=== PATIENT | female | born 1985 | race African-American/Black ===

== ENCOUNTER 2017-03-29 16:46 | Emergency (ER) | payer OTHER ==
--- NOTE | 2017-03-29 18:10 | ER Document Report ---
ED Medical Screen (RME) - General Mode of Arrival: Ambulatory TRAVEL OUTSIDE OF THE [place] IN LAST 30 DAYS: No <DEMETRIA HERNANDEZ - Last Filed: 03/29/17 18:13> <JUAN VERDIN - Last Filed: 03/29/17 18:27> - General Chief Complaint: Abdominal Pain Stated Complaint: ABDOMINAL PAIN Time Seen by Provider: 03/29/17 17:34 Notes: Patient is a 31 year old female presenting to the emergency department for abdominal pain. Patient states she belched and had a burning sensation. Patient states she also had some vomiting today and a numbing pain in her abdomen. Patient states she had diarrhea on Friday and is also having some cold sweats. Patient states she had an incisional hernia repair April 2016 and she feels like her abdomen is the same way as it was prior to her repair; patient states is from incision related to her . Patient denies being due to an IUD placement. Patient has no known drug allergies. (EDMETRIA HERNANDEZ) - Related Data Allergies/Adverse Reactions: No Known Allergies Allergy (Verified 03/29/17 16:50) Past Medical History - Social History Chew tobacco use (# tins/day): No Frequency of alcohol use: Occasional Drug Abuse: None - Past Medical History Cardiac Medical History: Reports: Hx Hypertension Denies: Hx Heart Murmur Renal/ Medical History: Denies: Hx Peritoneal Dialysis GI Medical History: Reports: Hx Gastroesophageal Reflux Disease - during . Denies: Hx Hiatal Hernia, Hx Ulcer Past Surgical History: Reports: Hx Abdominal Surgery - incisional hernia repair 2015, gastric bypass 2006, Hx Section - Immunizations Hx Diphtheria, Pertussis, Tetanus Vaccination: Yes - 2012 History of Influenza Vaccine for 03/2017 - 08/2017 Season: No <DEMETRIA HERNANDEZ - Last Filed: 03/29/17 18:13> Physical Exam <DEMETRIA HERNANDEZ - Last Filed: 03/29/17 18:13> <JUAN VERDIN - Last Filed: 03/29/17 18:27> - Vital signs Vitals: Temp Pulse Resp BP Pulse Ox 98.7 F 96 20 142/92 H 99 03/29/17 16:51 03/29/17 16:51 03/29/17 16:51 03/29/17 16:51 03/29/17 16:51 - Notes Notes: GENERAL: Alert, interacts well. No acute distress. LUNGS: Clear to auscultation bilaterally, no wheezes, rales, or rhonchi. No respiratory distress. HEART: Regular rate and rhythm. No murmurs, gallops, or rubs. ABDOMEN: Soft, epigastric and lower abdominal tenderness to palpation. Non- distended. Bowel sounds present in all 4 quadrants. (DEMETRIA HERNANDEZ) Course - Laboratory Result Diagrams: 03/29/17 17:45 03/29/17 17:45 <JUAN VERDIN - Last Filed: 03/29/17 18:27> - Vital Signs Vital signs: Temp Pulse Resp BP Pulse Ox 98.7 F 96 20 142/92 H 99 03/29/17 16:51 03/29/17 16:51 03/29/17 16:51 03/29/17 16:51 03/29/17 16:51 - Laboratory Laboratory results interpreted by me: 03/29/17 03/29/17 17:45 17:45 Hgb 9.7 L Hct 30.8 L MCV 67 L MCH 21.2 L MCHC 31.5 L RDW 17.6 H Urine Urobilinogen 2.0 H Ur Leukocyte Esterase TRACE H Scribe Documentation - Scribe Written by Scribe:: Astrid Brambila, 03/29/2017 181 acting as scribe for :: Eva <DEMETRIA HERNANDEZ - Last Filed: 03/29/17 18:13>
[2017-03-29 18:22] LABS: ABSOLUTE LYMPHOCYTES (AUTO) 1.2 10^3/uL (0.5-4.7); ABSOLUTE MONOCYTES (AUTO) 0.4 10^3/uL (0.1-1.4); ABSOLUTE NEUT (AUTO) 4.4 10^3/uL (1.7-8.2); BASOPHILS % (AUTO) 0.4 % (0-2); EOSINOPHILS % (AUTO) 0.4 % (0-6); HEMATOCRIT 30.8 % (36.0-47.0); HEMOGLOBIN 9.7 g/dL (12.0-15.5); HGB HCT DIFFERENCE -1.7; LYMPHOCYTES % (AUTO) 19.6 % (13-45); MEAN CORPUSCULAR HEMOGLOBIN 21.2 pg (27.0-33.4); MEAN CORPUSCULAR HGB CONC 31.5 g/dL (32.0-36.0); MEAN CORPUSCULAR VOLUME 67 fl (80-97); MONOCYTES % (AUTO) 6.6 % (3-13); RED BLOOD COUNT 4.58 10^6/uL (3.72-5.28); RED CELL DISTRIBUTION WIDTH 17.6 % (11.5-14.0); WHITE BLOOD COUNT 6.1 10^3/uL (4.0-10.5)
[2017-03-29 18:23] LABS: APPEARANCE,URINE SLIGHTLY-CLOUDY; BILIRUBIN,URINE NEGATIVE (NEGATIVE); CALCIUM OXALATE CRYSTALS,URINE TOO NUMEROUS TO CNT /HPF; GLUCOSE, URINE NEGATIVE (NEGATIVE); KETONES,URINE NEGATIVE (NEGATIVE); LEUKOCYTE ESTERASE,URINE TRACE (NEGATIVE); NITRITE,URINE NEGATIVE (NEGATIVE); PROTEIN,URINE NEGATIVE (NEGATIVE)
[2017-03-29 18:43] LABS: ALANINE AMINOTRANSFERASE 38 U/L (9-52); ALBUMIN 4.1 g/dL (3.5-5.0); ALKALINE PHOSPHATASE 102 U/L (38-126); ANION GAP 11 (5-19); ASPARTATE AMINO TRANSFERASE 35 U/L (14-36); BILIRUBIN,DIRECT 0.4 mg/dL (0.0-0.4); BILIRUBIN,TOTAL 0.4 mg/dL (0.2-1.3); BLOOD UREA NITROGEN 10 mg/dL (7-20); CARBON DIOXIDE 23 mmol/L (22-30); CHLORIDE 109 mmol/L (98-107); CREATININE RESULT 0.67 mg/dL (0.52-1.25); GLUCOSE 94 mg/dL (75-110); LIPASE 111.2 U/L (23-300); POTASSIUM 4.6 mmol/L (3.6-5.0); SODIUM 143.2 mmol/L (137-145); TOTAL PROTEIN 7.6 g/dL (6.3-8.2)
[2017-03-29] MEDS ORDERED: FAMOTIDINE 20 MG TABLET PO ONE (19:19)
[2017-03-29] MEDS ORDERED: NORMAL SALINE 1000 ML 1,000 ML IV ONE (19:19)
[2017-03-29] MEDS ORDERED: OXYCODONE-ACETAMINOPHEN 5-325 MG TABLET PO ONE (19:19)
[2017-03-29] MEDS ORDERED: PROMETHAZINE HCL 25 MG TABLET PO ONE (19:19)
--- NOTE | 2017-03-29 19:32 | ER Document Report ---
ED GI/ - General Chief Complaint: Abdominal Pain Stated Complaint: ABDOMINAL PAIN Time Seen by Provider: 03/29/17 17:34 Mode of Arrival: Ambulatory Notes: Patient is a 31-year-old female that comes emergency department for chief complaint of abdominal pain. She states that she belched, had a burning sensation and then had sharp pains in her abdomen, she states after she came to the emergency department she vomited. She states that she has pain in her mid abdomen. She has a history of gastric bypass, she takes no daily medications, such as a history of an incisional hernia after a which was repaired with mesh, she states that her pain is in a similar location and she is afraid it returned. She has an IUD in place. TRAVEL OUTSIDE OF THE [place] IN LAST 30 DAYS: No - Related Data Allergies/Adverse Reactions: No Known Allergies Allergy (Verified 03/29/17 16:50) Past Medical History - General Information source: Patient - Social History Smoking Status: Never Smoker Chew tobacco use (# tins/day): No Frequency of alcohol use: Occasional Drug Abuse: None Lives with: Family Family History: Reviewed & Not Pertinent - Past Medical History Cardiac Medical History: Reports: Hx Hypertension Denies: Hx Heart Murmur Renal/ Medical History: Denies: Hx Peritoneal Dialysis GI Medical History: Reports: Hx Gastroesophageal Reflux Disease - during . Denies: Hx Hiatal Hernia, Hx Ulcer Past Surgical History: Reports: Hx Abdominal Surgery - incisional hernia repair 2015, gastric bypass 2006, Hx Section - Immunizations Hx Diphtheria, Pertussis, Tetanus Vaccination: Yes - 2012 Review of Systems - Review of Systems Constitutional: No symptoms reported EENT: No symptoms reported Cardiovascular: No symptoms reported Respiratory: No symptoms reported Gastrointestinal: See HPI Genitourinary: No symptoms reported Female Genitourinary: No symptoms reported Musculoskeletal: No symptoms reported Skin: No symptoms reported Hematologic/Lymphatic: No symptoms reported Neurological/Psychological: No symptoms reported Physical Exam - Vital signs Vitals: Temp Pulse Resp BP Pulse Ox 98.7 F 96 20 142/92 H 99 03/29/17 16:51 03/29/17 16:51 03/29/17 16:51 03/29/17 16:51 03/29/17 16:51 Interpretation: Normal - General General appearance: Appears well, Alert In distress: None - HEENT Head: Normocephalic, Atraumatic Eyes: Normal Pupils: PERRL - Respiratory Respiratory status: No respiratory distress Chest status: Nontender Breath sounds: Normal Chest palpation: Normal - Cardiovascular Rhythm: Regular Heart sounds: Normal auscultation Murmur: No - Abdominal Inspection: Normal Distension: No distension Bowel sounds: Normal Tenderness: Tender - Generalized mid abdominal tenderness, no guarding, rigidity , rebound tenderness. Questionable hernia on examination although not obviously. No rigidity or erythema to the abdomen. Organomegaly: No organomegaly - Back Back: Normal, Nontender - Extremities General upper extremity: Normal inspection, Nontender, Normal color, Normal ROM , Normal temperature General lower extremity: Normal inspection, Nontender, Normal color, Normal ROM , Normal temperature, Normal weight bearing. No: Raissa's sign - Neurological Neuro grossly intact: Yes Cognition: Normal Orientation: AAOx4 Man Coma Scale Eye Opening: Spontaneous Man Coma Scale Verbal: Oriented Wendy Coma Scale Motor: Obeys Commands Man Coma Scale Total: 15 Speech: Normal Motor strength normal: LUE, RUE, LLE, RLE Sensory: Normal - Psychological Associated symptoms: Normal affect, Normal mood - Skin Skin Temperature: Warm Skin Moisture: Dry Skin Color: Normal Course - Re-evaluation Re-evalutation: No leukocytosis, no tachycardia, patient does not appear to be in any distress, there is questionable hernia over the mid abdomen on my examination although there is no guarding, rigidity, or rebound tenderness. There is mild generalized tenderness. Patient was medicated, afterwards she did not have any symptoms. Urinalysis unremarkable, chemistry unremarkable. Concern because of patient's history of hernia and questionable examination, after discussion with patient decision was made to perform imaging. Patient has a large nonobstructed hernia with bowel in the hernia in the infra umbilical area per CAT scan. On reevaluation patient remains well-appearing. I discussed with patient, she states that she has a surgeon in [place] that she wants to see in regards to this, she requests a copy of her report and CD and states she will call him tomorrow. I did provide her with medications, I discussed incarceration symptoms and return precautions in detail, no evidence of incarceration on her current examination, patient states understanding and agreement with plan. - Vital Signs Vital signs: Temp Pulse Resp BP Pulse Ox 98.8 F 62 18 153/104 H 100 03/29/17 23:10 03/29/17 23:10 03/29/17 23:10 03/29/17 23:10 03/29/17 23:10 - Laboratory Result Diagrams: 03/29/17 17:45 03/29/17 17:45 Laboratory results interpreted by me: 03/29/17 03/29/17 03/29/17 17:45 17:45 17:45 Hgb 9.7 L Hct 30.8 L MCV 67 L MCH 21.2 L MCHC 31.5 L RDW 17.6 H Chloride 109 H Urine Urobilinogen 2.0 H Ur Leukocyte Esterase TRACE H Discharge - Discharge Clinical Impression: Hernia Abdominal pain Qualifiers: Abdominal location: generalized Qualified Code(s): R10.84 - Generalized abdominal pain Condition: Stable Disposition: HOME, SELF-CARE Additional Instructions: There appears to be a recurrence of the hernia that was previously repaired. This was most likely the cause of your symptoms earlier. Please follow-up on Friday with your surgeon for a close follow-up for additional management of this. If needed take the pain medicine, take the stool softener if you take the pain medicine, however if you develop severe pain, begin to vomit, develop a fever, or have any other concerning symptoms please return immediately to the emergency department. Prescriptions: Docusate Sodium [Colace 100 mg Capsule] 100 mg PO DAILY #30 capsule Hydrocodone/Acetaminophen [[place] 5-325 mg Tablet] 1 - 2 tab PO ASDIR #12 tablet
--- NOTE | 2017-03-29 22:19 | RADIOLOGY REPORT (SQ) ---
EXAM DESCRIPTION: CT ABD/PELVIS WITH IV ORAL COMPLETED DATE/TIME: 03/29/2017 10:03 pm REASON FOR STUDY: mid abd pain, ? hernia COMPARISON: 01/18/2015 TECHNIQUE: CT scan of the abdomen and pelvis performed using helical scanning technique with dynamic intravenous contrast injection. No oral contrast. Images reviewed with lung, soft tissue, and bone windows. Reconstructed coronal and sagittal MPR images reviewed. Delayed images for evaluation of the urinary system also acquired. All images stored on PACS. All CT scanners at this facility use dose modulation, iterative reconstruction, and/or weight based d osing when appropriate to reduce radiation dose to as low as reasonably achievable (ALARA). [facility]: Dose Right [facility]: CareDose [facility]: Dose Right [facility]: Teradose 4D [facility]: [facility] CONTRAST TYPE AND DOSE: contrast/concentration: Isovue 370.00 mg/ml; Total Contrast Delivered: 100.0 ml; Total Saline Delivered: 70.1 ml RENAL FUNCTION: None required. The patient is less than 50 years old. RADIATION DOSE: Up-to-date CT equipment and radiation dose reduction techniques were employed. CTDIv ol: 21.1 - 21.1 mGy. DLP: 2169 mGy-cm.. LIMITATIONS: None. FINDINGS: LOWER CHEST: No significant findings. No nodules or infiltrates. LIVER: Normal size. No masses. No dilated ducts. SPLEEN: Normal size. No focal lesions. PANCREAS: No masses. No significant calcifications. No adjacent inflammation or peripancreatic fluid collections. Pancreatic duct not dilated. GALLBLADDER: No identified stones by CT criteria. No inflammatory changes to suggest cholecystitis. ADRENAL GLANDS: No significant masses or asymmetry. RIGHT KIDNEY AND URETER: No solid masses. No significant calcifications. No hydronephrosis or hyd roureter. LEFT KIDNEY AND URETER: No solid masses. No significant calcifications. No hydronephrosis or hydr oureter. AORTA AND VESSELS: No aneurysm. No dissection. Renal arteries, SMA, celiac without stenosis. RETROPERITONEUM: No retroperitoneal adenopathy, hemorrhage or masses. BOWEL AND PERITONEAL CAVITY: Status post gastric bypass surgery. APPENDIX: Normal. PELVIS: No mass. No free fluid. Normal bladder. Note is again made of an apparent intrauterine mayela ce without evidence of gross complication. ABDOMINAL WALL: Re- demonstration of an infraumbilical abdominal wall hernia containing several loops of small bowel without evidence of obstruction or incarceration. However, small amount of fluid is seen within the hernia sac. The neck measures on the order of 4.1 x 4.7 cm. BONES: No significant or acute findings. OTHER: No other significant finding. IMPRESSION: Re- demonstration of an infraumbilical abdominal hernia containing loops of small bowel without evidence of incarceration or obstruction. A small amount of fluid seen adjacent to the small bowel within the hernia sac is a nonspecific finding. Other chronic and incidental findings as deta iled above. TECHNICAL DOCUMENTATION: JOB ID: [id number] Quality ID # [id number]: Final reports with documentation of one or more dose reduction techniques (e.g., Au tomated exposure control, adjustment of the mA and/or kV according to patient size, use of iterative reconstruction technique) 2010 [employer]- All Rights Reserved
[2017-03-29 23:12] VITALS: BP 153/104
== END 2017-03-29 23:11 | disposition home or self-care (01) ==
LOC: ER 16:46
DX: K46.9 Unspecified abdominal hernia without obstruction or gangrene (principal); R10.84 Generalized abdominal pain; R14.2 Eructation; Z98.84 Bariatric surgery status
CPT/HCPCS: 99284; 96360; 36415; 83690; 85025; 81025; 80053; 81001; 74177; J7030

== ENCOUNTER 2018-03-26 10:35 | Emergency (ER) | payer OTHER ==
[2018-03-26] MEDS ORDERED: KETOROLAC TROMETHAMINE INJ/PF 30 MG/1 ML SDV IV ONE (11:00)
[2018-03-26] MEDS ORDERED: DICYCLOMINE HCL INJ 20 MG/2 ML AMPULE IM ONE (11:01)
--- NOTE | 2018-03-26 11:02 | ER Document Report ---
ED Medical Screen (RME) - General Chief Complaint: Lower Abdominal Pain Stated Complaint: ABDOMINAL PAIN Time Seen by Provider: 03/26/18 10:52 Notes: 32 years old female had 2 ventral hernia surgical repair, today she felt a pop in the lower right abdomen and started having severe pain which made her bend down and sit down. For a while. Subsequently she was able to reduce the hernia and came to the ED. Currently has no nausea vomiting diarrhea but been constipated. Current pain level is mild to moderate. Reducible right lower ventral hernia noted. TRAVEL OUTSIDE OF THE [place] IN LAST 30 DAYS: No - Related Data Allergies/Adverse Reactions: No Known Allergies Allergy (Verified 03/26/18 10:38) Past Medical History - Past Medical History Cardiac Medical History: Reports: Hx Hypertension Denies: Hx Heart Murmur Renal/ Medical History: Denies: Hx Peritoneal Dialysis GI Medical History: Reports: Hx Gastroesophageal Reflux Disease - during . Denies: Hx Hiatal Hernia, Hx Ulcer Past Surgical History: Reports: Hx Abdominal Surgery - incisional hernia repair 2015, gastric bypass 2006, Hx Section - Immunizations Hx Diphtheria, Pertussis, Tetanus Vaccination: Yes - 2012 History of Influenza Vaccine for 03/2017 - 08/2017 Season: No Physical Exam - Vital signs Vitals: Temp Pulse Resp BP Pulse Ox 98.7 F 94 18 147/96 H 99 03/26/18 10:42 03/26/18 10:42 03/26/18 10:42 03/26/18 10:42 03/26/18 10:42 Course - Vital Signs Vital signs: Temp Pulse Resp BP Pulse Ox 98.7 F 94 18 147/96 H 99 03/26/18 10:42 03/26/18 10:42 03/26/18 10:42 03/26/18 10:42 03/26/18 10:42
--- NOTE | 2018-03-26 12:00 | RADIOLOGY REPORT (SQ) ---
EXAM DESCRIPTION: ACUTE ABDOMEN SERIES COMPLETED DATE/TIME: 03/26/2018 11:30 am REASON FOR STUDY: Acute abdominal pain COMPARISON: None. NUMBER OF VIEWS: Three views. TECHNIQUE: Frontal chest, supine abdomen and upright/decubitus abdomen radiographic images acquired. LIMITATIONS: None. FINDINGS: CHEST: Lungs clear of infiltrates. FREE AIR: None. No abnormal gas collections. BOWEL GAS PATTERN: Nonobstructive pattern. No dilated loops or air fluid levels. CALCIFICATIONS: No suspicious calcifications. HARDWARE: Mid abdominal surgical clips. IUD. SOFT TISSUES: No gross mass or suggestion of organomegaly. BONES: No acute fracture. No worrisome bone lesions. OTHER: No other significant finding. IMPRESSION: NO RADIOGRAPHIC EVIDENCE FOR ACUTE ABDOMINAL DISEASE. TECHNICAL DOCUMENTATION: JOB ID: [id number]- All Rights Reserved Reading location - IP/workstation name: [email or web address]
--- NOTE | 2018-03-26 12:26 | ER Document Report ---
ED GI/ - General Chief Complaint: Lower Abdominal Pain Stated Complaint: ABDOMINAL PAIN Time Seen by Provider: 03/26/18 10:52 Notes: Patient is here complaining of pain in the right lower quadrant. She says that she had a hernia repair with mesh insertion in 2016 and that became obstructed and she had to undergo emergency surgery in 2017. She had been doing well until about a week ago when she sneezed and felt a pop in her right lower quadrant area, the same location that she had the previous hernia obstruction a year ago. She says that she can feel the bowel and can move it in and out. She tells me that the doctor out front reduced the bowel when he triaged her. She has not had any problems with bowel movements. Her last bowel movement was this morning. No blood in her stools. Has not had any nausea or vomiting. Has not had any fever. Patient is also had gastric bypass surgery and 2 C-sections. TRAVEL OUTSIDE OF THE [place] IN LAST 30 DAYS: No - Related Data Allergies/Adverse Reactions: No Known Allergies Allergy (Verified 03/26/18 10:38) Past Medical History - Social History Smoking Status: Never Smoker Chew tobacco use (# tins/day): No Frequency of alcohol use: None Drug Abuse: None Family History: Reviewed & Not Pertinent Patient has suicidal ideation: No Patient has homicidal ideation: No - Past Medical History Cardiac Medical History: Reports: Hx Hypertension Denies: Hx Coronary Artery Disease, Hx Heart Murmur Pulmonary Medical History: Denies: Hx Asthma Endocrine Medical History: Denies: Hx Diabetes Mellitus Type 1, Hx Diabetes Mellitus Type 2 GI Medical History: Reports: Hx Gastroesophageal Reflux Disease - during , Other - Hernia repair 2016 with bowel obstruction 2017, both requiring surgery.. Denies: Hx Hiatal Hernia Past Surgical History: Reports: Hx Abdominal Surgery - incisional hernia repair 2016, gastric bypass 2006, Hx Section, Hx Herniorrhaphy - Lower abdominal hernia repair with mesh 2016. Obstruction 2017 surgery - Immunizations Hx Diphtheria, Pertussis, Tetanus Vaccination: Yes - 2012 Review of Systems - Review of Systems Notes: REVIEW OF SYSTEMS: CONSTITUTIONAL : Denies fever. EENT: Denies eye, ear, nose or mouth or throat pain or other symptoms. CARDIOVASCULAR: Denies chest pain. RESPIRATORY: Denies cough, chest congestion, or shortness of breath. GASTROINTESTINAL: See HPI. GENITOURINARY: Denies difficulty or painful urinating, urinary frequency, blood in urine. MUSCULOSKELETAL: Denies back or neck pain. Denies joint pain or swelling. SKIN: Denies rash or skin lesions. NEUROLOGICAL: Denies LOC or altered mental status. Denies headache. Denies sensory loss or motor deficits. ALL OTHER SYSTEMS REVIEWED AND NEGATIVE. Physical Exam - Vital signs Vitals: Temp Pulse Resp BP Pulse Ox 98.7 F 94 18 147/96 H 99 03/26/18 10:42 03/26/18 10:42 03/26/18 10:42 03/26/18 10:42 03/26/18 10:42 Interpretation: Normal Notes: PHYSICAL EXAMINATION: GENERAL: Well-appearing, in no acute distress. HEAD: Atraumatic, normocephalic. EYES: Pupils equal round and reactive to light, extraocular movements intact. ENT: oropharynx clear without exudates. Moist mucous membranes. NECK: Normal range of motion, supple. LUNGS: Breath sounds clear and equal bilaterally. HEART: Regular rate and rhythm without murmurs. ABDOMEN: Soft, nontender. No guarding or rebound. No masses. No hernia felt at this time. Overall appearance of the patient's abdomen does look like there is some slightly more prominence in the right lower quadrant region than in the other 3 quadrants. BACK: No tenderness throughout entire back. EXTREMITIES: Normal range of motion without pain. NEUROLOGICAL: Normal speech, normal gait. Normal sensory, motor, and reflex exams. Awake, alert, and oriented x3. Cranial nerves normal. PSYCH: Normal mood, normal affect. SKIN: Warm, dry, no rashes. Course - Re-evaluation Re-evalutation: 03/26/18 19:37 Patient was evaluated by Dr. Brown, surgeon bilingual sales consultant, and he feels patient can be discharged home to follow-up with them in the office. They are going to arrange for the patient to be seen by a surgeon in [place]. Patient is also significantly anemic with a hemoglobin of 8.0. Patient has been anemic in the past and has had transfusions in the past. Looking back on her visits here, she had a hemoglobin in the 12s occurred a few years ago and in the 9s region about 1 year ago. She is currently on her period. She has no other bleeding site or suspicion. Has not had black tarry stools. Used to be on iron p.o., but says it constipated her and she does not like to take it. I have given her a referral to our local brake repairer air, . I am also giving her a prescription for ferrous sulfate twice a day. - Vital Signs Vital signs: Temp Pulse Resp BP Pulse Ox 98.8 F 71 16 148/99 H 95 03/26/18 18:10 03/26/18 18:10 03/26/18 18:10 03/26/18 18:10 03/26/18 18:10 - Laboratory Result Diagrams: 03/26/18 12:20 03/26/18 12:20 Laboratory results interpreted by me: 03/26/18 03/26/18 11:20 12:20 Hgb 8.0 L Hct 26.4 L MCV 61 L MCH 18.6 L MCHC 30.4 L RDW 19.6 H Urine Blood LARGE H Ur Leukocyte Esterase TRACE H Discharge - Discharge Clinical Impression: Abdominal wall hernia, Anemia Condition: Stable Disposition: HOME, SELF-CARE Additional Instructions: Hernia You have a hernia. A hernia forms at a weak spot in the abdominal wall. Bowel slips out of the abdominal cavity into the weak spot. Hernias tend to occur in the groin (especially in males), the fold of the thigh, the naval, or at a surgical scar. Surgical repair of the defect is usually necessary. The problem tends to get worse. It's important that you follow up as recommended. For now, you should avoid straining, heavy lifting, and vigorous exercise. Complications occur if the hernia becomes tightly stuck. You should come back immediately if the area becomes increasingly painful, swollen, or discolored, or if you develop abdominal pain and vomiting. If your hernia should become stuck in one position and you cannot relieve the pressure and pain, you may have another obstruction and need to return for us to reevaluate you immediately. TORADOL INJECTION: You have been given an injection of ketorolac tromethamine (Toradol). This is an excellent, safe drug for pain control. It also has potent antiinflammatory action. You should have significant pain relief within about one hour. Toradol is not addicting and is non-sedating. It does not interfere with driving or work. Call or return if you develop itching, hives, shortness of breath, or rash. You are advised to get Colace which you can purchase [id number] and take it twice a day to keep your stools soft and to prevent constipation. Anemia You have been found to have a significant anemia (a lower than normal amount of red blood cells). Anemia can be due to iron deficiency, vitamin deficiency, abnormal bleeding, or internal diseases. Usually, further tests are necessary to find the exact cause of the anemia. The most common cause of anemia is iron deficiency, often brought on by blood loss. This can be treated with iron supplements. If this appears to be the most likely cause, iron tablets may be prescribed even before all tests are complete. Contact the doctor at once if you note black or tarry-looking stools, bloody vomiting, shortness of breath, chest pain, or faintness. You are being given a prescription for iron. It will turn your stools black and it will also frequently constipate the patient. Drink plenty of fluids and take the Colace mentioned above to help prevent constipation. FOLLOW-UP CARE: If you have been referred to a physician for follow-up care, call the physician s office for an appointment as you were instructed or within the next two days. If you experience worsening or a significant change in your symptoms, notify the physician immediately or return to the Emergency Department at any time for re-evaluation. Call Dr. Brown's office tomorrow and they will arrange for you to get an appointment to be seen by a surgeon in [place]. I have also given you the name of Dr. Gutierrez, a local brake repairer air for you to see about your anemia. Call his office tomorrow to schedule a follow-up visit. Prescriptions: Ferrous Sulfate [Iron] 325 mg PO BID #60 tablet Forms: Return to Work Referrals: VAMSHI BROWN MD [ACTIVE STAFF] - Follow up tomorrow SHANTAL GUTIERREZ MD [ACTIVE STAFF] - Follow up in 1 month
[2018-03-26 12:37] LABS: APPEARANCE,URINE SLIGHTLY-CLOUDY; BILIRUBIN,URINE NEGATIVE (NEGATIVE); COLOR,URINE STRAW; GLUCOSE, URINE NEGATIVE (NEGATIVE); KETONES,URINE NEGATIVE (NEGATIVE); LEUKOCYTE ESTERASE,URINE TRACE (NEGATIVE); NITRITE,URINE NEGATIVE (NEGATIVE); PROTEIN,URINE NEGATIVE (NEGATIVE); URINE SPECIFIC GRAVITY 1.004; UROBILINOGEN,URINE NEGATIVE mg/dL (<2.0)
[2018-03-26 12:45] LABS: ABSOLUTE EOSINOPHILS # (AUTO) 0.1 10^3/uL (0.0-0.6); ABSOLUTE LYMPHOCYTES (AUTO) 2.4 10^3/uL (0.5-4.7); ABSOLUTE MONOCYTES (AUTO) 0.4 10^3/uL (0.1-1.4); ABSOLUTE NEUT (AUTO) 2.8 10^3/uL (1.7-8.2); BASOPHILS % (AUTO) 0.6 % (0-2); EOSINOPHILS % (AUTO) 0.9 % (0-6); HEMATOCRIT 26.4 % (36.0-47.0); LYMPHOCYTES % (AUTO) 41.7 % (13-45); MEAN CORPUSCULAR HEMOGLOBIN 18.6 pg (27.0-33.4); MEAN CORPUSCULAR HGB CONC 30.4 g/dL (32.0-36.0); MONOCYTES % (AUTO) 7.4 % (3-13); PLATELET COUNT 371 10^3/uL (150-450); RED BLOOD COUNT 4.32 10^6/uL (3.72-5.28); RED CELL DISTRIBUTION WIDTH 19.6 % (11.5-14.0); SEGMENTED NEUTROPHILS % (AUTO) 49.4 % (42-78); TOTAL CELLS COUNTED % (AUTO) 100 %; WHITE BLOOD COUNT 5.6 10^3/uL (4.0-10.5)
[2018-03-26 12:46] LABS: MEAN CORPUSCULAR VOLUME 61 fl (80-97)
[2018-03-26 13:01] LABS: ALANINE AMINOTRANSFERASE 24 U/L (9-52); ALBUMIN 3.6 g/dL (3.5-5.0); ALKALINE PHOSPHATASE 99 U/L (38-126); ANION GAP 5 (5-19); ASPARTATE AMINO TRANSFERASE 35 U/L (14-36); BILIRUBIN,DIRECT 0.1 mg/dL (0.0-0.4); BILIRUBIN,TOTAL 0.3 mg/dL (0.2-1.3); BLOOD UREA NITROGEN 10 mg/dL (7-20); CALCIUM 8.8 mg/dL (8.4-10.2); CARBON DIOXIDE 29 mmol/L (22-30); CHLORIDE 104 mmol/L (98-107); GLUCOSE 84 mg/dL (75-110); LIPASE 108.6 U/L (23-300); POTASSIUM 4.1 mmol/L (3.6-5.0); SODIUM 137.9 mmol/L (137-145); TOTAL PROTEIN 7.2 g/dL (6.3-8.2)
[2018-03-26 13:16] LABS: ANISOCYTOSIS 2+; HYPOCHROMASIA 3+; OVALOCYTES 1+; PLATELET COMMENT ADEQUATE; POIKILOCYTOSIS 1+; SCHISTOCYTES 1+; TARGET CELLS SLIGHT
--- NOTE | 2018-03-26 15:26 | RADIOLOGY REPORT (SQ) ---
EXAM DESCRIPTION: CT ABD/PELVIS WITH IV ORAL COMPLETED DATE/TIME: 03/26/2018 3:11 pm REASON FOR STUDY: RLQ pain, Hx hernia repair/mesh,RLQ, gastrc bypas COMPARISON: 03/29/2017 TECHNIQUE: CT scan of the abdomen and pelvis performed with intravenous and oral contrast using krystin christina scanning technique with dynamic intravenous contrast injection. Images reviewed with lung, soft t issue, and bone windows. Reconstructed coronal and sagittal MPR images reviewed. Delayed images for e valuation of the urinary system also acquired. All images stored on PACS. All CT scanners at this facility use dose modulation, iterative reconstruction, and/or weight based d osing when appropriate to reduce radiation dose to as low as reasonably achievable (ALARA). [facility]: Dose Right [facility]: CareDose [facility]: Dose Right [facility]: Teradose 4D [facility]: [employer] CONTRAST TYPE AND DOSE: contrast/concentration: Isovue 350.00 mg/ml; Total Contrast Delivered: 100.0 ml; Total Saline Delivered: 72.0 ml RENAL FUNCTION: GFR > 60. RADIATION DOSE: CT Rad equipment meets quality standard of care and radiation dose reduction techniq ues were employed. CTDIvol: 21.0 - 21.1 mGy. DLP: 2277 mGy-cm. . LIMITATIONS: None. FINDINGS: LOWER CHEST: No significant findings. No nodules or infiltrates. LIVER: Normal size. No masses. No dilated ducts. SPLEEN: Normal size. No focal lesions. PANCREAS: No masses. No significant calcifications. No adjacent inflammation or peripancreatic fluid collections. Pancreatic duct not dilated. GALLBLADDER: No identified stones by CT criteria. No inflammatory changes to suggest cholecystitis. ADRENAL GLANDS: No significant masses or asymmetry. RIGHT KIDNEY AND URETER: No solid masses. No significant calcifications. Duplicated ureter. No h ydronephrosis. LEFT KIDNEY AND URETER: No solid masses. No significant calcifications. No hydronephrosis or hydr oureter. AORTA AND VESSELS: No aneurysm. No dissection. Renal arteries, SMA, celiac without stenosis. RETROPERITONEUM: No retroperitoneal adenopathy, hemorrhage or masses. BOWEL AND PERITONEAL CAVITY: Prior gastric bypass. Nondilated loops of small bowel and fluid within right lower quadrant anterior abdominal wall hernia. No ascites or free air. APPENDIX: Normal. PELVIS: There is an IUD in the uterus. No free fluid or adenopathy. ABDOMINAL WALL: See above. BONES: No significant or acute findings. OTHER: No other significant finding. IMPRESSION: Right lower quadrant anterior abdominal wall hernia containing fluid and nondilated loop s of small bowel. Normal appendix. TECHNICAL DOCUMENTATION: JOB ID: [id number] Quality ID # [id number]: Final reports with documentation of one or more dose reduction techniques (e.g., Au tomated exposure control, adjustment of the mA and/or kV according to patient size, use of iterative reconstruction technique) 2010 [employer]- All Rights Reserved Reading location - IP/workstation name: [email or web address] [[email or web address]]
--- NOTE | 2018-03-26 17:41 | PDOC CONSULTATION ---
History of Present Illness Admission Date/PCP: DANIEL CASILLAS MD Patient complains of: Lower abdominal pain History of Present Illness: ANA LUISA BYRD is a 32 year old female with history of multiple abdominal surgeries including laparoscopic Doug-en-Y gastric bypass, 2 C-sections. Patient developed a lower abdominal hernia for which she underwent laparoscopic incisional hernia repair with mesh in the year 2016. The hernia however recurred and she subsequently underwent another laparoscopic incisional hernia repair with mesh in March 2017. She apparently had been doing well up until a few weeks ago when she noted some changes to her lower abdomen with a more of a true protuberance. She noted "her belly dropped." She noted associated lower abdominal discomfort as well. After sneezing about a week ago she developed sudden onset of severe pain along with a firmness in her lower abdomen. This pain subsided when she massage this area and the firmness went away. The abdominal protuberance however has been persistent. She noticed recurrent episode of the pain and fullness in the past several days requiring massaging with subsequent relief. She had this episode again today today and came in through the emergency department. This region of swelling was reduced in the emergency department and currently she is not having any pain. She she denies any nausea or vomiting. Past Medical History Cardiac Medical History: Reports: Hypertension Denies: Coronary Artery Disease, Heart Murmur Pulmonary Medical History: Denies: Asthma Endocrine Medical History: Denies: Diabetes Mellitus Type 1, Diabetes Mellitus Type 2 GI Medical History: Reports: Gastroesophageal Reflux Disease - during , Other - Hernia repair 2016 with bowel obstruction 2017, both requiring surgery. Denies: Hiatal Hernia Hematology: Reports: Anemia Past Surgical History Past Surgical History: Reports: Section - X2, Herniorrhaphy - Lower abdominal hernia repair with mesh 2016. Repeat repair in 2017 Social History Smoking Status: Never Smoker Frequency of Alcohol Use: Occasional Hx Recreational Drug Use: No Hx Prescription Drug Abuse: No Family History Family History: Reviewed & Not Pertinent Parental Family History Reviewed: No Children Family History Reviewed: No Sibling(s) Family History Reviewed.: No Medication/Allergy Home Medications: Methyldopa [Aldomet 250 mg Tablet] 2 tab PO QAM 08/05/14 Ibuprofen [Motrin 800 mg Tablet] 800 mg PO Q6 PRN #30 tablet 09/09/14 Oxycodone HCl/Acetaminophen [Percocet 5-325 mg Tablet] 2 tab PO Q4HP PRN #45 tablet 09/09/14 Pnv with Ca,No.72/Iron/FA [ Plus Multivitamin Tab] 1 tab PO DAILY #60 tab 09/09/14 Docusate Sodium [Colace 100 mg Capsule] 100 mg PO DAILY #30 capsule 03/29/17 Hydrocodone/Acetaminophen [Flint 5-325 mg Tablet] 1 - 2 tab PO ASDIR #12 tablet 03/29/17 Allergies/Adverse Reactions: No Known Allergies Allergy (Verified 03/26/18 10:38) Physical Exam Vital Signs: Temp Pulse Resp BP Pulse Ox 98.7 F 94 18 147/96 H 99 03/26/18 10:42 03/26/18 10:42 03/26/18 10:42 03/26/18 10:42 03/26/18 10:42 Intake & Output 03/25/18 03/26/18 03/27/18 06:59 06:59 06:59 Weight 117.3 kg General appearance: PRESENT: no acute distress, cooperative Respiratory exam: PRESENT: clear to auscultation melissa Cardiovascular exam: PRESENT: RRR GI/Abdominal exam: PRESENT: other - Soft, nondistended, very mild lower abdominal tenderness with slight fullness but no firmness. Difficult to tell whether she has a herniation in the lower abdomen due to the body habitus. But no obvious masses felt. No peritoneal signs Extremities exam: PRESENT: other - No swelling and no tenderness Neurological exam: PRESENT: alert, awake Psychiatric exam: PRESENT: appropriate affect Skin exam: PRESENT: warm Results Laboratory Results: 03/26/18 12:20 03/26/18 12:20 03/26/18 03/26/18 03/26/18 11:20 11:20 11:20 WBC RBC Hgb Hct MCV MCH MCHC RDW Plt Count Seg Neutrophils % Lymphocytes % Monocytes % Eosinophils % Basophils % Absolute Neutrophils Absolute Lymphocytes Absolute Monocytes Absolute Eosinophils Absolute Basophils Sodium Cancelled Potassium Cancelled Chloride Cancelled Carbon Dioxide Cancelled Anion Gap Cancelled BUN Cancelled Creatinine Cancelled Est GFR ( Amer) Cancelled Est GFR (Non-Af Amer) Cancelled Glucose Cancelled Calcium Cancelled Total Bilirubin Cancelled AST Cancelled ALT Cancelled Alkaline Phosphatase Cancelled Total Protein Cancelled Albumin Cancelled Lipase Cancelled Serum HCG, Qual Cancelled Urine Color STRAW Urine Appearance SLIGHTLY-CLOUDY Urine pH 6.0 Ur Specific Golden 1.004 Urine Protein NEGATIVE Urine Glucose (UA) NEGATIVE Urine Ketones NEGATIVE Urine Blood LARGE H Urine Nitrite NEGATIVE Ur Leukocyte Esterase TRACE H Urine WBC (Auto) 3 Urine RBC (Auto) 11 03/26/18 03/26/18 03/26/18 12:20 12:20 12:20 WBC 5.6 RBC 4.32 Hgb 8.0 L Hct 26.4 L MCV 61 L MCH 18.6 L MCHC 30.4 L RDW 19.6 H Plt Count 371 Seg Neutrophils % 49.4 Lymphocytes % 41.7 Monocytes % 7.4 Eosinophils % 0.9 Basophils % 0.6 Absolute Neutrophils 2.8 Absolute Lymphocytes 2.4 Absolute Monocytes 0.4 Absolute Eosinophils 0.1 Absolute Basophils 0.0 Sodium 137.9 Potassium 4.1 Chloride 104 Carbon Dioxide 29 Anion Gap 5 BUN 10 Creatinine 0.60 Est GFR ( Amer) > 60 Est GFR (Non-Af Amer) > 60 Glucose 84 Calcium 8.8 Total Bilirubin 0.3 AST 35 ALT 24 Alkaline Phosphatase 99 Total Protein 7.2 Albumin 3.6 Lipase 108.6 Serum HCG, Qual Cancelled Urine Color Urine Appearance Urine pH Ur Specific Golden Urine Protein Urine Glucose (UA) Urine Ketones Urine Blood Urine Nitrite Ur Leukocyte Esterase Urine WBC (Auto) Urine RBC (Auto) Impressions: Abdomen/Pelvis CT 03/26/18 00:00 IMPRESSION: Right lower quadrant anterior abdominal wall hernia containing fluid and nondilated loops of small bowel. Normal appendix. Acute Abdomen Series 03/26/18 11:00 IMPRESSION: NO RADIOGRAPHIC EVIDENCE FOR ACUTE ABDOMINAL DISEASE. Assessment & Plan - Diagnosis (1) Recurrent incisional hernia Is this a current diagnosis for this admission?: Yes Plan: Inpatient with 2 prior hernia repairs with mesh. She has no evidence of intestinal obstruction and no evidence of strangulation. The hernia is partially reducible. She is asymptomatic when the hernia is partially reduced. Patient was strongly benefit from another hernia repair however with her multiple recurrences, she needs this procedure with a hernia specialist. Patient does not wish to go back to her last surgeon. Patient understands the importance of being able to at least partially reduce the hernia when she does have more fullness and pain and the need for immediate medical attention if she is not able to do so. I will discharged patient home and I will arrange an appointment with hernia specialist in [facility] and call her with the appointment. I will have the ER give her a copy of the CT scan disc to take with her. Again patient has no pain and no evidence of obstruction at this time. She understands the concerns about the hernia and what to look out for. I have asked the ER physician to write her a prescription for stool softener. I have asked the patient to stay well-hydrated and avoid strenuous activity. When she does note firmness in the lower belly she is to lay down and gently massage the area to make sure that it goes back again as she has done previously.
[2018-03-26 18:12] VITALS: BP 148/99
[2018-03-27 13:31] LABS: PATH REVIEW PATHOLOGIST REVIEWED
== END 2018-03-26 18:28 | disposition home or self-care (01) ==
LOC: ER 10:35
DX: K43.9 Ventral hernia without obstruction or gangrene (principal); D64.9 Anemia, unspecified; R10.30 Lower abdominal pain, unspecified; I10 Essential (primary) hypertension; Z98.84 Bariatric surgery status
CPT/HCPCS: 99284; 96372; 96374; 36415; 83690; 85025; 81025; 80053; 81001; 74022; 74177; J0500; J1885

== ENCOUNTER 2018-07-14 04:52 | Emergency (ER) | payer OTHER ==
[2018-07-14] MEDS ORDERED: HYDROMORPHONE HCL INJ/PF 2 MG/ML AMPULE IV ONE ×2 (06:47→10:35)
[2018-07-14] MEDS ORDERED: ONDANSETRON HCL INJ/PF 4 MG/2 ML SDV IV ONE (06:47)
[2018-07-14 07:22] LABS: HEMATOCRIT 25.2 % (36.0-47.0); MEAN CORPUSCULAR HEMOGLOBIN 20.8 pg (27.0-33.4); MEAN CORPUSCULAR HGB CONC 31.7 g/dL (32.0-36.0); MEAN CORPUSCULAR VOLUME 66 fl (80-97); PLATELET COUNT 658 10^3/uL (150-450); RED BLOOD COUNT 3.84 10^6/uL (3.72-5.28); RED CELL DISTRIBUTION WIDTH 17.7 % (11.5-14.0); WHITE BLOOD COUNT 10.8 10^3/uL (4.0-10.5)
[2018-07-14 07:51] LABS: ABSOLUTE LYMPHOCYTES# (MANUAL) 1.3 10^3/uL (0.5-4.7); ABSOLUTE MONOCYTES # (MANUAL) 0.5 10^3/uL (0.1-1.4); ABSOLUTE NEUTROPHILS# (MANUAL) 8.7 10^3/uL (1.7-8.2); BASOPHILS % (MANUAL) 0 % (0-2); EOSINOPHILS % (MANUAL) 2 % (0-6); LYMPHOCYTES % (MANUAL) 12 % (13-45); MONOCYTES % (MANUAL) 5 % (3-13); SEGMENTED NEUTROPHILS % (MAN) 81 % (42-78); TOTAL CELLS COUNTED 100
[2018-07-14 07:52] LABS: ANISOCYTOSIS 1+; HYPOCHROMASIA 1+; SCHISTOCYTES 1+
[2018-07-14 07:53] LABS: PLATELET COMMENT INCREASED; ROULEAUX 2+
[2018-07-14 09:06] LABS: ALANINE AMINOTRANSFERASE 24 U/L (9-52); ALKALINE PHOSPHATASE 94 U/L (38-126); ANION GAP 9 (5-19); ASPARTATE AMINO TRANSFERASE 34 U/L (14-36); BILIRUBIN,DIRECT 0.2 mg/dL (0.0-0.4); BILIRUBIN,TOTAL 0.2 mg/dL (0.2-1.3); BLOOD UREA NITROGEN 8 mg/dL (7-20); CALCIUM 8.7 mg/dL (8.4-10.2); CARBON DIOXIDE 26 mmol/L (22-30); CHLORIDE 107 mmol/L (98-107); GLUCOSE 92 mg/dL (75-110); POTASSIUM 4.1 mmol/L (3.6-5.0); SODIUM 141.6 mmol/L (137-145); TOTAL PROTEIN 7.2 g/dL (6.3-8.2)
--- NOTE | 2018-07-14 10:29 | RADIOLOGY REPORT (SQ) ---
EXAM DESCRIPTION: CT ABD/PELVIS WITH IV ONLY COMPLETED DATE/TIME: 07/14/2018 10:03 am REASON FOR STUDY: Right abdomen surgical incision cellulitis COMPARISON: 03/26/2018 TECHNIQUE: CT scan of the abdomen and pelvis performed using helical scanning technique with dynamic intravenous contrast injection. No oral contrast. Images reviewed with lung, soft tissue, and bone windows. Reconstructed coronal and sagittal MPR images reviewed. Delayed images for evaluation of the urinary system also acquired. All images stored on PACS. All CT scanners at this facility use dose modulation, iterative reconstruction, and/or weight based d osing when appropriate to reduce radiation dose to as low as reasonably achievable (ALARA). [facility]: Dose Right [facility]: CareDose [facility]: Dose Right [facility]: Teradose 4D [facility]: [employer] CONTRAST TYPE AND DOSE: 100 cc Omnipaque 350- low osmolar. RENAL FUNCTION: GFR > 60. RADIATION DOSE: CT Rad equipment meets quality standard of care and radiation dose reduction techniq ues were employed. CTDIvol: 19.3 - 21.1 mGy. DLP: 2264 mGy-cm.. LIMITATIONS: None. FINDINGS: LOWER CHEST: No significant findings. No nodules or infiltrates. LIVER: Normal size. No masses. No dilated ducts. SPLEEN: Normal size. No focal lesions. PANCREAS: No masses. No significant calcifications. No adjacent inflammation or peripancreatic fluid collections. Pancreatic duct not dilated. GALLBLADDER: No identified stones by CT criteria. No inflammatory changes to suggest cholecystitis. ADRENAL GLANDS: No significant masses or asymmetry. RIGHT KIDNEY AND URETER: No solid masses. No significant calcifications. No hydronephrosis or hyd roureter. LEFT KIDNEY AND URETER: No solid masses. No significant calcifications. No hydronephrosis or hydr oureter. AORTA AND VESSELS: No aneurysm. No dissection. Renal arteries, SMA, celiac without stenosis. RETROPERITONEUM: No retroperitoneal adenopathy, hemorrhage or masses. BOWEL AND PERITONEAL CAVITY: Status post gastric bypass. No obstruction. No ascites or free air. APPENDIX: Normal. PELVIS: IUD in the uterus. Small bilateral inguinal nodes measuring up to 1.5 x 1.5 cm on the right. ABDOMINAL WALL: Interval repair of anterior abdominal wall hernia. 4.3 x 8.8 x 9.7 cm fluid collecti on deep to the surgical mesh. Motion appears intact. Inflammation in the deep subcutaneous tissues right flank and lower quadrant anterior abdominal wall. No organized fluid collection. BONES: Nothing acute. OTHER: No other significant finding. IMPRESSION: 1. Fluid collection deep to intact surgical mesh anterior abdominal wall. Surgical consultation lissa mmended. 2. Inflammatory changes in the subcutaneous tissues right lower quadrant suspicious for infection. N o organized fluid collection. TECHNICAL DOCUMENTATION: JOB ID: [id number] Quality ID # [id number]: Final reports with documentation of one or more dose reduction techniques (e.g., Au tomated exposure control, adjustment of the mA and/or kV according to patient size, use of iterative reconstruction technique) 2010 [employer]- All Rights Reserved Reading location - IP/workstation name: [email or web address]
[2018-07-14] MEDS ORDERED: SULFAMETHOXAZOLE/TRIMETHOPRIM 800-160 MG TABLET PO ONE (11:22)
[2018-07-14 12:08] VITALS: BP 127/69
--- NOTE | 2018-07-14 13:38 | ER Document Report ---
Entered by PARISA LARA SCRIBE 07/14/18 0646 Acting as scribe for:MARJORIE ZAVALA MD ED General - General Chief Complaint: Post Surgical Pain Stated Complaint: SURGICAL INCISION ISSUES Time Seen by Provider: 07/14/18 06:23 Primary Care Provider: VAIBHAV FREEMAN MD [Primary Care Provider] - Follow up as needed Information source: Patient Notes: 32-year-old female who presents to the emergency department today with complaints of right-sided abdominal pain, swelling, and warmth. Patient states she had a hernia repair with a tummy tuck done on May 27. Patient states for about a week and a half she has had this right-sided pain so she called her surgeon who was going to fit her in tomorrow. Patient states at about 0200 this morning she felt a "bump" in her right lower abdomen and then when going to the bathroom at 0330 this morning she noticed that her underwear was wet and that this area had began draining. TRAVEL OUTSIDE OF THE [place] IN LAST 30 DAYS: No - Related Data Allergies/Adverse Reactions: No Known Allergies Allergy (Verified 03/26/18 10:38) Past Medical History - General Information source: Patient - Social History Smoking Status: Unknown if Ever Smoked Lives with: Family Family History: Reviewed & Not Pertinent Patient has suicidal ideation: No Patient has homicidal ideation: No - Past Medical History Cardiac Medical History: Reports: Hx Hypertension GI Medical History: Reports: Hx Gastroesophageal Reflux Disease - during Past Surgical History: Reports: Hx Abdominal Surgery - incisional hernia repair 2016, gastric bypass 2006, Hx Section, Hx Herniorrhaphy - Lower abdominal hernia repair with mesh 2015. Obstruction 2017 surgery - Immunizations Hx Diphtheria, Pertussis, Tetanus Vaccination: Yes - 2012 Review of Systems - Review of Systems Constitutional: No symptoms reported EENT: No symptoms reported Cardiovascular: No symptoms reported Respiratory: No symptoms reported Gastrointestinal: See HPI, Abdominal pain, Nausea, Other - abdominal swelling Genitourinary: No symptoms reported Female Genitourinary: No symptoms reported Musculoskeletal: No symptoms reported Skin: See HPI, Lesions Hematologic/Lymphatic: No symptoms reported Neurological/Psychological: No symptoms reported -: Yes All other systems reviewed and negative Physical Exam - Vital signs Vitals: Temp Pulse Resp BP Pulse Ox 99.7 F 119 H 19 145/90 H 100 07/14/18 05:00 07/14/18 05:00 07/14/18 05:00 07/14/18 05:00 07/14/18 05:00 - Notes Notes: Physical Exam: General: Alert, appears well. HEENT: Normocephalic. Atraumatic. PERRL. Extraocular movements intact. Oropharynx clear. Neck: Supple. Non-tender. Respiratory: No respiratory distress. Clear and equal breath sounds bilaterally. Cardiovascular: Regular rate and rhythm. Abdominal: Right half of the abdomen is swollen, distended varicosities throughout the right lower abdomen, right half is indurated, warm to the touch, and exquisitely tender with palpation. Just right of midline there is a surgical defect draining serous fluid. Normal Bowel Sounds. Back: Non-tender. No deformity or step off. Extremities: Moves all four extremities. Upper extremities: Normal inspection. Normal ROM. Lower extremities: Normal inspection. No edema. Normal ROM. Neurological: Normal cognition. AAOx4. Normal speech. Psychological: Normal affect. Normal Mood. Skin: Warm. Dry. Normal color. Course - Vital Signs Vital signs: Temp Pulse Resp BP Pulse Ox 99.7 F 119 H 19 145/90 H 100 07/14/18 05:00 07/14/18 05:00 07/14/18 05:00 07/14/18 05:00 07/14/18 05:00 - Laboratory Result Diagrams: 07/14/18 07:06 07/14/18 08:25 Laboratory results interpreted by me: 07/14/18 07/14/18 07:06 08:25 WBC 10.8 H Hgb 8.0 L Hct 25.2 L MCV 66 L MCH 20.8 L MCHC 31.7 L RDW 17.7 H Plt Count 658 H Seg Neuts % (Manual) 81 H Lymphocytes % (Manual) 12 L Abs Neuts (Manual) 8.7 H Albumin 3.0 L - Diagnostic Test Radiology reviewed: Reports reviewed - Consults Dr. Freeman Time consulted: 11:18 Consulted provider: follow-up in office - Recommend starting the patient on Septra or Augmentin, and keeping her follow-up appointment in the office tomorrow. Discharge - Discharge Clinical Impression: Cellulitis of right abdominal wall Condition: Stable Disposition: HOME, SELF-CARE Additional Instructions: Cellulitis You have an infection of your skin and underlying soft tissues called cellulitis. This is due to bacteria, which can enter through any break in the skin, or even through an irritated hair follicle. Untreated, cellulitis will usually worsen. Antibiotics are required. Usually, warm packs or warm soaks, and elevation of the infected area are recommended. You should start getting better within 24 to 36 hours. Most infections respond quickly to the right medication. Follow-up care is important, however, to check for abscess (boil) formation, unsuspected foreign body, or resistant infection. If you develop fever, chills, or if the area of infection is becoming rapidly more swollen or painful, call the doctor at once. Take the medications as prescribed. Follow up with Dr. Freeman tomorrow as scheduled. RETURN TO THE EMERGENCY ROOM IF ANY NEW OR WORSENING SYMPTOMS. Prescriptions: Oxycodone HCl/Acetaminophen [Percocet 5-325 mg Tablet] 1 - 2 tab PO ASDIR PRN #15 tablet PRN Reason: Sulfamethoxazole/Trimethoprim [Septra-Ds 800-160 mg Tablet] 2 tab PO BID #20 tablet Referrals: VAIBHAV FREEMAN MD [Primary Care Provider] - Follow up tomorrow I personally performed the services described in the documentation, reviewed and edited the documentation which was dictated to the scribe in my presence, and it accurately records my words and actions.
== END 2018-07-14 12:08 | disposition home or self-care (01) ==
LOC: ER 04:52
DX: L03.311 Cellulitis of abdominal wall (principal); I10 Essential (primary) hypertension; R11.0 Nausea; Z98.890 Other specified postprocedural states
CPT/HCPCS: 96376; 99284; 96374; 96375; 36415; 87070; 87205; 85025; 87077; 80053; 87186; 74177; J1170; J2405

== ENCOUNTER 2018-09-09 21:14 | Emergency (ER) | payer OTHER ==
[2018-09-09] MEDS ORDERED: HYDROCODONE/ACETAMINOPHEN 10-325 MG TABLET PO ONE (22:03)
--- NOTE | 2018-09-09 22:05 | ER Document Report ---
ED Medical Screen (RME) - General Chief Complaint: Abscess Stated Complaint: POSSIBLE INFECTION Time Seen by Provider: 09/09/18 22:02 Primary Care Provider: VAIBHAV FREEMAN MD [Primary Care Provider] - Follow up as needed Notes: Patient is a 32-year-old male presents to the emergency department for an abscess on her abdominal wall. Patient states she has an extensive history of abscesses on her abdomen. States she was admitted in [place] for a "blood infection." States she feels as though she has another one forming. Patient is refusing any imaging studies states "just poke it so I can go home." Was in [facility] 2 weeks for I&D, bandages still in place. GENERAL: Alert, interacts well. No acute distress. ABDOMEN: Soft, Non-distended. Bowel sounds present in all 4 quadrants. Area of fluctuance and induration noted just above suprapubic region. I have greeted and performed a rapid initial assessment of this patient. A comprehensive ED assessment and evaluation of the patient, analysis of test re sults and completion of the medical decision making process will be conducted by additional ED providers. TRAVEL OUTSIDE OF THE [place] IN LAST 30 DAYS: No - Related Data Allergies/Adverse Reactions: No Known Allergies Allergy (Verified 03/26/18 10:38) Past Medical History - Past Medical History Cardiac Medical History: Reports: Hx Hypertension Denies: Hx Coronary Artery Disease, Hx Heart Murmur Pulmonary Medical History: Denies: Hx Asthma Endocrine Medical History: Denies: Hx Diabetes Mellitus Type 1, Hx Diabetes Mellitus Type 2 Renal/ Medical History: Denies: Hx Peritoneal Dialysis GI Medical History: Reports: Hx Gastroesophageal Reflux Disease - during . Denies: Hx Hiatal Hernia, Hx Ulcer Past Surgical History: Reports: Hx Abdominal Surgery - incisional hernia repair 2015, gastric bypass 2006, Hx Section, Hx Herniorrhaphy - Lower abdominal hernia repair with mesh 2015. Obstruction 2017 surgery - Immunizations Hx Diphtheria, Pertussis, Tetanus Vaccination: Yes - 2012 History of Influenza Vaccine for 03/2017 - 08/2017 Season: No Physical Exam - Vital signs Vitals: Temp Pulse Resp BP Pulse Ox 99.1 F 104 H 16 153/105 H 99 09/09/18 21:22 09/09/18 21:22 09/09/18 21:22 09/09/18 21:22 09/09/18 21:22 Course - Vital Signs Vital signs: Temp Pulse Resp BP Pulse Ox 99.1 F 104 H 16 153/105 H 99 09/09/18 21:22 09/09/18 21:22 09/09/18 21:22 09/09/18 21:22 09/09/18 21:22 Doctor's Discharge - Discharge Referrals: VAIBHAV FREEMAN MD [Primary Care Provider] - Follow up as needed
--- NOTE | 2018-09-09 23:43 | RADIOLOGY REPORT (SQ) ---
EXAM DESCRIPTION: US ABDOMEN LIMITED COMPLETED DATE/TME: 09/09/2018 22:03 CLINICAL HISTORY: 32 years, Female, soft tissue swelling/abscess COMPARISON: 07/14/2018 CT TECHNIQUE: Limited ultrasound was obtained inferior to the umbilicus, in the region of the patient's clinical/palpable abnormality LIMITATIONS: None. FINDINGS: There is an approximately 1.7 x 1.7 x 2.3 cm complex fluid collection in the superficial soft tissues inferior to the umbilicus. This is suspicious for small abscess. IMPRESSION: Complex fluid collection in the region scanned, as above. This is suspicious for small abscess. copyright 2010 [employer]- All Rights Reserved
--- NOTE | 2018-09-10 00:37 | ER Document Report ---
ED General - General Chief Complaint: Abscess Stated Complaint: POSSIBLE INFECTION Time Seen by Provider: 09/10/18 00:37 Primary Care Provider: VAIBHAV FREEMAN MD [Primary Care Provider] - Follow up as needed Mode of Arrival: Ambulatory Information source: Patient Notes: HISTORY OF PRESENT ILLNESS: Patient is a 32-year-old female with a past medical history of ventral hernia repair 4 months ago status post postoperative infection with incision and drainage who presents with recurrent pain and drainage from her lower abdominal surgery site. Location: Lower abdomen Onset: Several days ago Alleviation: None Provocation: Movement Quality: Aching, burning Radiation: None Severity: Moderate Timing: Constant History of abdominal surgery: Yes Associated symptoms: No fevers or chills, no cough or congestion, no vomiting or diarrhea Last bowel movement: Today and normal Last menstrual period: 1 week ago REVIEW OF SYSTEMS: CONSTITUTIONAL : Denies fever or chills, no sweats. Denies recent illness. EENT: Denies eye, ear, throat, or mouth pain or symptoms. Denies nasal or sinus congestion. CARDIOVASCULAR: Denies chest pain. Denies swelling of the legs. RESPIRATORY: Denies cough, cold, or chest congestion. Denies shortness of breath or difficulty breathing. Denies wheezing. GASTROINTESTINAL: Positive for abdominal pain. Denies nausea, vomiting, or d iarrhea. Denies constipation. GENITOURINARY: Denies difficulty urinating, painful urination, burning, frequency, or blood in urine. FEMALE GENITOURINARY: Denies vaginal bleeding, abnormal or irregular periods. MUSCULOSKELETAL: Denies neck or back pain or joint pain or swelling. SKIN: Denies rash or skin lesions. HEMATOLOGIC : Denies easy bruising or bleeding. LYMPHATIC: Denies swollen, enlarged glands. NEUROLOGICAL: Denies altered mental status or loss of consciousness. Denies headache. Denies weakness or paralysis or loss of use of either side. Denies problems with gait or speech. Denies sensory or motor loss. PSYCHIATRIC: Denies anxiety or stress or depression. All other systems reviewed and negative. PHYSICAL EXAMINATION: GENERAL: Well-appearing, well-nourished and in no acute distress. HEAD: Atraumatic, normocephalic. No scalp deformity, depression, or crepitance. EYES: Pupils are 3 mm and equal/round/reactive to light, extraocular movements intact, sclera anicteric, conjunctiva are normal. ENT: Nares patent bilaterally, oropharynx. Moist mucous membranes. No tonsil hypertrophy. NECK: Normal range of motion, supple without lymphadenopathy. LUNGS: Breath sounds present, equal, and clear to auscultation bilaterally. No wheezes, rales, or rhonchi. HEART: Regular rate and rhythm without murmurs, rubs, or gallops. 2+ peripheral pulses. Normal capillary refill. ABDOMEN: Soft, copious amount of purulent material draining from an open sinus tract on the midline ventral aspect of a well-healed surgical incision, mildly surrounding tenderness, no bleeding. Normoactive bowel sounds. No guarding, no rebound. No masses appreciated. BACK: Normal contour, no midline tenderness. Rectal exam deferred. GENITAL/PELVIC: Deferred. EXTREMITIES: Normal range of motion, no pitting or edema. No cyanosis. NEUROLOGICAL: No focal neurological deficits. Moves all extremities spontaneously and on command. PSYCH: Normal mood, normal affect. No suicidal thoughts/ideations. No homocidal thoughts/ideations. No hallucinations. SKIN: Warm, dry, normal turgor, no rashes or lesions noted. ASSESSMENT AND PLAN: This patient is a 32-year-old female who presents with low abdominal pain related to possible infection in a previous surgical site. Previous ultrasound shows a small 2 cm x 2 cm x 3 cm fluid collection that likely represents abscess in this area, however the area has an open sinus tract and is draining. 1. Will obtain labs, urine, give oral doxycycline with [place], and reassess. 2. Will anticipate discharge with surgery follow-up. TRAVEL OUTSIDE OF THE [place] IN LAST 30 DAYS: No - Related Data Allergies/Adverse Reactions: No Known Allergies Allergy (Verified 03/26/18 10:38) Past Medical History - General Information source: Patient - Social History Smoking Status: Never Smoker Chew tobacco use (# tins/day): No Frequency of alcohol use: None Drug Abuse: None Lives with: Family Family History: Reviewed & Not Pertinent Patient has suicidal ideation: No Patient has homicidal ideation: No - Past Medical History Cardiac Medical History: Reports: Hx Hypertension Denies: Hx Coronary Artery Disease, Hx Heart Murmur Pulmonary Medical History: Reports: None Denies: Hx Asthma EENT Medical History: Reports: None Neurological Medical History: Reports: None Endocrine Medical History: Reports: None. Denies: Hx Diabetes Mellitus Type 1, Hx Diabetes Mellitus Type 2 Renal/ Medical History: Reports: None. Denies: Hx Peritoneal Dialysis Malignancy Medical History: Reports: None GI Medical History: Reports: Hx Gastroesophageal Reflux Disease - during . Denies: Hx Hiatal Hernia, Hx Ulcer Musculoskeletal Medical History: Reports None Skin Medical History: Reports None Psychiatric Medical History: Reports: None Traumatic Medical History: Reports: None Infectious Medical History: Reports: None Past Surgical History: Reports: Hx Abdominal Surgery - incisional hernia repair 2015, gastric bypass 2006, Hx Section, Hx Herniorrhaphy - Lower abdominal hernia repair with mesh 2015. Obstruction 2017 surgery - Immunizations Hx Diphtheria, Pertussis, Tetanus Vaccination: Yes - 2012 Physical Exam - Vital signs Vitals: Temp Pulse Resp BP Pulse Ox 99.1 F 104 H 16 153/105 H 99 09/09/18 21:22 09/09/18 21:22 09/09/18 21:22 09/09/18 21:22 09/09/18 21:22 Course - Re-evaluation Re-evalutation: 09/10/18 03:24 Ultrasound shows a small likely abscess underlying the surgical incision site, however the area is open as it is draining on exam. The area was cleaned and the patient was given oral doxycycline. She will be discharged home with return precautions and follow-up. Patient voices both understanding and agreeing with plan. - Vital Signs Vital signs: Temp Pulse Resp BP Pulse Ox 98.9 F 104 H 16 128/78 H 99 09/10/18 03:33 09/09/18 21:22 09/10/18 03:00 09/10/18 03:00 09/10/18 03:00 - Laboratory Result Diagrams: 09/10/18 00:24 09/10/18 00:24 Laboratory results interpreted by me: 09/10/18 00:24 Hgb 9.0 L Hct 28.0 L MCV 69 L MCH 22.2 L RDW 23.1 H - Diagnostic Test Radiology reviewed: Image reviewed, Reports reviewed Discharge - Discharge Clinical Impression: Cellulitis and abscess of trunk Abdominal pain Qualifiers: Abdominal location: generalized Qualified Code(s): R10.84 - Generalized abdominal pain Condition: Good Disposition: HOME, SELF-CARE Instructions: Abscess ([facility]) Additional Instructions: You have been evaluated in the Emergency Department for pain and drainage from an abscess underlying your surgical incision site. While here, you had blood work that was normal and an ultrasound that revealed a small fluid collection that is draining and it is now safe to be discharged home. Please follow-up with your primary physician and your surgeon as instructed. Return to the Emergency Department if you experience high fevers, worsening pain, or any other concerning symptoms. Prescriptions: Hydrocodone/Acetaminophen [[place] 5-325 mg Tablet] 1 tab PO Q6HP PRN #20 tablet PRN Reason: For Pain Doxycycline Hyclate 100 mg PO BID #20 capsule Forms: Return to Work Referrals: VAIBHAV FREEMAN MD [Primary Care Provider] - Follow up as needed Print Language: Lebanese
[2018-09-10 00:39] LABS: ABSOLUTE BASOPHILS # (AUTO) 0.1 10^3/uL (0.0-0.2); ABSOLUTE EOSINOPHILS # (AUTO) 0.1 10^3/uL (0.0-0.6); ABSOLUTE MONOCYTES (AUTO) 0.4 10^3/uL (0.1-1.4); BASOPHILS % (AUTO) 0.7 % (0-2); EOSINOPHILS % (AUTO) 1.5 % (0-6); LYMPHOCYTES % (AUTO) 26.6 % (13-45); MEAN CORPUSCULAR HEMOGLOBIN 22.2 pg (27.0-33.4); MEAN CORPUSCULAR VOLUME 69 fl (80-97); MONOCYTES % (AUTO) 5.6 % (3-13); PLATELET COUNT 427 10^3/uL (150-450); RED BLOOD COUNT 4.05 10^6/uL (3.72-5.28); RED CELL DISTRIBUTION WIDTH 23.1 % (11.5-14.0); SEGMENTED NEUTROPHILS % (AUTO) 65.6 % (42-78); TOTAL CELLS COUNTED % (AUTO) 100 %; WHITE BLOOD COUNT 7.6 10^3/uL (4.0-10.5)
[2018-09-10 00:53] LABS: ALANINE AMINOTRANSFERASE 38 U/L (9-52); ALBUMIN 3.5 g/dL (3.5-5.0); ALKALINE PHOSPHATASE 118 U/L (38-126); ANION GAP 9 (5-19); ASPARTATE AMINO TRANSFERASE 28 U/L (14-36); BILIRUBIN,DIRECT 0.2 mg/dL (0.0-0.4); BILIRUBIN,TOTAL 0.3 mg/dL (0.2-1.3); BLOOD UREA NITROGEN 11 mg/dL (7-20); CALCIUM 9.3 mg/dL (8.4-10.2); CARBON DIOXIDE 24 mmol/L (22-30); CHLORIDE 106 mmol/L (98-107); GLUCOSE 110 mg/dL (75-110); POTASSIUM 4.2 mmol/L (3.6-5.0); SODIUM 139.3 mmol/L (137-145); TOTAL PROTEIN 8.1 g/dL (6.3-8.2)
[2018-09-10] MEDS ORDERED: HYDROCODONE/ACETAMINOPHEN 5-325 MG TABLET PO ONE (01:32)
[2018-09-10] MEDS ORDERED: DOXYCYCLINE HYCLATE 100 MG TABLET PO ONE (01:32)
[2018-09-10 03:21] VITALS: BP 128/78
== END 2018-09-10 03:30 | disposition home or self-care (01) ==
LOC: ER 21:14
DX: L03.319 Cellulitis of trunk, unspecified (principal); L02.219 Cutaneous abscess of trunk, unspecified; R10.84 Generalized abdominal pain; I10 Essential (primary) hypertension; Z98.890 Other specified postprocedural states; Z98.84 Bariatric surgery status
CPT/HCPCS: 36415; 76705; 80053; 85025; 87040; 99283

== ENCOUNTER → 2019-05-13 | Outpatient (CLI) | payer MEDICAID, OTHER ==
[2014-09-09 18:14] VITALS: BP 162/94
--- NOTE | 2019-05-13 15:12 | RADIOLOGY REPORT (SQ) ---
EXAM DESCRIPTION: CT ABD/PELVIS WITH IV ORAL COMPLETED DATE/TIME: 05/13/2019 1:03 pm REASON FOR STUDY: L02.211 CUTANEOUS ABSCESS OF ABDOMINAL WALL L02.211 CUTANEOUS ABSCESS OF ABDOMINA L WALL COMPARISON: CT abdomen pelvis 01/18/2015, 03/29/2017, 03/26/2018, 07/14/2018 TECHNIQUE: CT scan of the abdomen and pelvis performed using helical scanning technique with dynamic intravenous contrast injection. Patient drank oral contrast. Images reviewed with lung, soft tissue , and bone windows. Reconstructed coronal and sagittal MPR images reviewed. Delayed images for evalua tion of the urinary system also acquired. All images stored on PACS. All CT scanners at this facility use dose modulation, iterative reconstruction, and/or weight based d osing when appropriate to reduce radiation dose to as low as reasonably achievable (ALARA). [facility]: Dose Right [facility]: CareDose [facility]: Dose Right [facility]: Teradose 4D [facility]: [employer] CONTRAST TYPE AND DOSE: contrast/concentration: Isovue 350.00 mg/ml; Total Contrast Delivered: 100.0 ml; Total Saline Delivered: 72.0 ml RENAL FUNCTION: Creatinine 0.7 RADIATION DOSE: CT Rad equipment meets quality standard of care and radiation dose reduction techniq ues were employed. CTDIvol: 25.0 - 25.1 mGy. DLP: 2612 mGy-cm.. LIMITATIONS: None. FINDINGS: Patient is post ventral hernia repair along the periumbilical and infraumbilical region. There is radiopaque mesh along the anterior abdominal wall deep aspect of the rectus muscle sheath on axial images 61 through 67. This radiopaque mesh is surrounded by a thick walled fluid collection m easuring 5 cm transverse by 2 cm AP by 7 cm craniocaudad. Along the inferior aspect of the mesh, a sinus tract is seen from the inferior aspect midline rectus muscle sheath to the skin, best shown on sagittal reconstruction images 47-49. This is also evident on axial images 75-79. No recurrent hernia is identified. LOWER CHEST: No significant findings. No nodules or infiltrates. LIVER: Normal size. No masses. No dilated ducts. SPLEEN: Normal size. No focal lesions. PANCREAS: No masses. No significant calcifications. No adjacent inflammation or peripancreatic fluid collections. Pancreatic duct not dilated. GALLBLADDER: No identified stones by CT criteria. No inflammatory changes to suggest cholecystitis. ADRENAL GLANDS: No significant masses or asymmetry. RIGHT KIDNEY AND URETER: No solid masses. No significant calcifications. No hydronephrosis or hyd roureter. LEFT KIDNEY AND URETER: No solid masses. No significant calcifications. No hydronephrosis or hydr oureter. AORTA AND VESSELS: No aneurysm. No dissection. Renal arteries, SMA, celiac without stenosis. RETROPERITONEUM: No retroperitoneal adenopathy, hemorrhage or masses. BOWEL AND PERITONEAL CAVITY: Patient drank oral contrast. No bowel obstruction. Post gastric bypass . No free intraperitoneal air or fluid. APPENDIX: Normal. PELVIS: No mass. No free fluid. Normal bladder. Normal size female pelvic organs. IUD in the endom etrial canal ABDOMINAL WALL: As above BONES: No significant or acute findings. OTHER: No other significant finding. IMPRESSION: Prior ventral hernia repair with mesh at and inferior to the level of the umbilicus. Fl uid collection around the mesh persists, with a sinus tract to the skin in the midline suprapubic reg ion. TECHNICAL DOCUMENTATION: JOB ID: [id number] Quality ID # [id number]: Final reports with documentation of one or more dose reduction techniques (e.g., Au tomated exposure control, adjustment of the mA and/or kV according to patient size, use of iterative reconstruction technique) 2010 [employer]- All Rights Reserved Reading location - IP/workstation name: [email or web address]
== END ==
LOC: RAD 12:28
PROVIDERS: ATTEND Nurse Practitioner Family
DX: L02.211 Cutaneous abscess of abdominal wall (principal)
CPT/HCPCS: 74177; 82565

== ENCOUNTER 2020-03-08 20:48 | Emergency (ER) | payer OTHER ==
[2020-03-08] MEDS ORDERED: ACETAMINOPHEN 325 MG TABLET PO ONE (22:33)
--- NOTE | 2020-03-08 22:39 | ER Document Report ---
ED Medical Screen (RME) - General Chief Complaint: Laceration Stated Complaint: FINGER LACERATION Time Seen by Provider: 03/08/20 22:33 Primary Care Provider: KRISTYN BAL NP, [employer] [Primary Care Provider] - Follow up as needed Mode of Arrival: Ambulatory Information source: Patient Notes: HPI; 34-year-old female presents to the emergency room with a laceration to the palmar aspect of her right index finger. Patient states she was washing dishes did not see a knife and she cut the tip of her finger on a knife. Bleeding is controlled. Tetanus is up-to-date. Patient is right-handed. Did not take any medications for pain prior to arrival. Patient drove self to the emergency room. PE: Alert and oriented x3. Mild distress noted. Lungs: Clear to auscultation without rales, rhonchi, wheezes. Heart: Regular rate rhythm without murmurs, rubs, gallops. There is a 2 cm laceration noted palmar aspect distal right index finger. Bleeding is controlled. Positive right radial pulse. Capillary refill less than 3 seconds. I have greeted and performed a rapid initial assessment of this patient. A comprehensive ED assessment and evaluation of the patient, analysis of test results and completion of the medical decision making process will be conducted by additional ED providers. I have specifically instructed the patient or family members with the patient to immediately return to any nursing staff should anything change in the patient's condition or with their chief complaint. TRAVEL OUTSIDE OF THE [place] IN LAST 30 DAYS: No - Related Data Allergies/Adverse Reactions: No Known Allergies Allergy (Verified 03/26/18 10:38) Past Medical History - Social History Chew tobacco use (# tins/day): No Frequency of alcohol use: None Drug Abuse: None - Past Medical History Cardiac Medical History: Reports: Hx Hypertension Denies: Hx Coronary Artery Disease, Hx Heart Murmur Pulmonary Medical History: Denies: Hx Asthma Endocrine Medical History: Denies: Hx Diabetes Mellitus Type 1, Hx Diabetes Mellitus Type 2 Renal/ Medical History: Denies: Hx Peritoneal Dialysis GI Medical History: Reports: Hx Gastroesophageal Reflux Disease - during . Denies: Hx Hiatal Hernia, Hx Ulcer Past Surgical History: Reports: Hx Abdominal Surgery - incisional hernia repair 2016, gastric bypass 2006, Hx Section, Hx Herniorrhaphy - Lower abdominal hernia repair with mesh 2016. Obstruction 2017 surgery - Immunizations Hx Diphtheria, Pertussis, Tetanus Vaccination: Yes - 2012 Physical Exam - Vital signs Vitals: Temp Pulse Resp BP Pulse Ox 98.6 F 71 16 174/106 H 100 03/08/20 21:26 03/08/20 21:26 03/08/20 21:26 03/08/20 21:03/08/20 21:26 Course - Vital Signs Vital signs: Temp Pulse Resp BP Pulse Ox 98.6 F 71 16 174/106 H 100 03/08/20 21:26 03/08/20 21:26 03/08/20 21:26 03/08/20 21:26 03/08/20 21:26 Doctor's Discharge - Discharge Referrals: KRISTYN BAL [employer], [employer] [Primary Care Provider] - Follow up as needed
[2020-03-08] MEDS ORDERED: LIDOCAINE 1% INJ-PF (10 MG/ML) 30 ML SDV INJ ONE (23:21)
--- NOTE | 2020-03-08 23:27 | ER Document Report ---
ED General - General Chief Complaint: Laceration Stated Complaint: FINGER LACERATION Time Seen by Provider: 03/08/20 22:33 Primary Care Provider: KRISTYN BAL MACHINE RIVETER, [employer] [Primary Care Provider] - Follow up as needed Mode of Arrival: Ambulatory Information source: Patient Notes: Patient is a 34-year-old -[place] female coming in today chief complaint right index finger laceration. She was doing the dishes and sliced her right index finger on an exposed end of a knife. No chance of foreign body. Tetanus up-to-date. TRAVEL OUTSIDE OF THE [place] IN LAST 30 DAYS: No - Related Data Allergies/Adverse Reactions: No Known Allergies Allergy (Verified 03/26/18 10:38) Past Medical History - General Information source: Patient - Social History Smoking Status: Never Smoker Chew tobacco use (# tins/day): No Frequency of alcohol use: None Drug Abuse: None Family History: Reviewed & Not Pertinent Patient has homicidal ideation: No - Past Medical History Cardiac Medical History: Reports: Hx Hypertension Denies: Hx Coronary Artery Disease, Hx Heart Murmur Pulmonary Medical History: Denies: Hx Asthma Endocrine Medical History: Denies: Hx Diabetes Mellitus Type 1, Hx Diabetes Mellitus Type 2 Renal/ Medical History: Denies: Hx Peritoneal Dialysis GI Medical History: Reports: Hx Gastroesophageal Reflux Disease - during . Denies: Hx Hiatal Hernia, Hx Ulcer Past Surgical History: Reports: Hx Abdominal Surgery - incisional hernia repair 2015, gastric bypass 2006, Hx Section, Hx Herniorrhaphy - Lower abdominal hernia repair with mesh 2015. Obstruction 2017 surgery - Immunizations Hx Diphtheria, Pertussis, Tetanus Vaccination: Yes - 2012 Review of Systems - Review of Systems Notes: Constitutional: No fevers. No chills. EENT: No eye redness. No eye pain. No ear pain. No sore throat. Cardiovascular: No chest pain. No palpitations. Respiratory: No cough. No shortness of breath. No respiratory distress. Gastrointestinal: No abdominal pain. No nausea, vomiting, or diarrhea. Genitourinary: Atraumatic. No lesions. No pain. No discharge. Musculoskeletal: Atraumatic. No swelling. No deformities. Skin: Right index finger laceration Lymphatic: No swollen lymph nodes. Neurologic: No headache. No syncope. Psychiatric: No suicidal or homicidal ideation. Physical Exam - Vital signs Vitals: Temp Pulse Resp BP Pulse Ox 98.6 F 71 16 174/106 H 100 03/08/20 21:26 03/08/20 21:26 03/08/20 21:26 03/08/20 21:03/08/20 21:26 - Notes Notes: General: Well-developed, well-nourished. In no acute distress. Non-toxic appearing. Cardiac: Well-perfused. Regular rate and rhythm. No murmurs, rubs, or gallops. Pulmonary: No respiratory distress. No cyanosis. Bilateral lung fiels are clear to auscultation. Abdominal: Non-distended. Non-rigid. Bowels sounds are present in all four quadrants. No guarding or rebound. HEENT: Head is atraumatic. Conjunctivae not reddened. No tearing. PERRL. EOMI. Orbits atraumatic. No periorbital swelling or erythema. Oropharynx is without erythema, swelling, or exudates. Neck: Supple. No adenopathy. No meningismus. Dermatologic: Warm with good turgor. No rash. Atraumatic. Chest: Atraumatic. No chest wall tenderness to palpation. Musculoskeletal: 2 cm laceration to the palmar aspect of the tip of the right index finger. No active bleeding. Genitourinary: Examination deferred Neurologic: No gross neurologic deficits. Psychiatric: Normal mood. Course - Vital Signs Vital signs: Temp Pulse Resp BP Pulse Ox 98.6 F 71 16 174/106 H 100 03/08/20 21:26 03/08/20 21:26 03/08/20 21:26 03/08/20 21:26 03/08/20 21:26 Procedures - Laceration/Wound Repair Right 2nd digit Time completed: 23:45 Wound length (cm): 2 Wound's Depth, Shape: Linear Laceration pre-procedure: Sterile PPE donned, Sterile drapes applied, Shur-Clens applied Anesthetic type: 1% Lidocaine Wound explored: Clean Wound Repaired With: Sutures Suture Size/Type: 4:0 Number of Sutures: 4 Layer Closure?: No Post-procedure wound care: Sterile dressing applied, Splint applied, Sling applied Post-procedure NV exam normal: Yes Complications: No Discharge - Discharge Clinical Impression: Laceration of finger Qualifiers: Encounter type: initial encounter Finger: index finger Damage to nail status: without damage Foreign body presence: without foreign body Laterality: right Qualified Code(s): S61.210A - Laceration without foreign body of right index finger without damage to nail, initial encounter Condition: Good Disposition: HOME, SELF-CARE Instructions: Antibiotic Ointment Protection ([facility]), Laceration Care ([facility]), Soap Cleansing ([facility]) Additional Instructions: Need to see your doctor in 10 days for suture removal Forms: Return to Work Referrals: KRISTYN BAL NP, MACHINE RIVETER [Primary Care Provider] - Follow up as needed
[2020-03-09 00:03] VITALS: BP 135/91
== END 2020-03-09 00:30 | disposition home or self-care (01) ==
LOC: ER 20:48
DX: S61.210A Laceration without foreign body of right index finger without damage to nail, initial encounter (principal); W26.0XXA Contact with knife, initial encounter; Y93.G1 Activity, food preparation and clean up; I10 Essential (primary) hypertension
CPT/HCPCS: 99284